=== PATIENT | male | born 1945 | race Caucasian/White ===

== ENCOUNTER → 2021-10-27 | Emergency (ER) | payer MEDICARE, SELFPAY ==
[2021-10-27 19:35] VITALS: BP 177/91; PULSE 87; RESP 16; TEMP 36.4; O2SAT 98; BMI 30.1
[2021-10-27 19:42] VITALS: BP 186/95; PULSE 91; RESP 15; O2SAT 98
--- NOTE | 2021-10-27 19:44 | RAD_ITS ---
INDICATION: chest pain EXAMINATION/TECHNIQUE: X-RAY - XR Chest 1 View COMPARISON: 09/30/2015 chest x-ray. FINDINGS: LINES/DEVICES: None. LUNGS: Mild asymmetric elevation right hemidiaphragm compared to left, unchanged compared with 09/30/2015 chest x-ray. No airspace opacity or abnormal interstitial pattern. No nodule or mass. No pleural effusion or pneumothorax. MEDIASTINUM AND CARDIOVASCULAR STRUCTURES: Altered contour due to mild rightward rotation. There is however normal size and contour of the cardiomediastinal silhouette. No evidence of pulmonary vascular congestion. BONES AND SOFT TISSUES: No fracture or focal osseous lesion. RAD/Chest 1 View (Portable) IMPRESSION: 1. No radiographic evidence of acute cardiopulmonary disease. Electronically Signed: Timothy Vaca DO at 20:37 EDT ,
--- NOTE | 2021-10-27 19:45 | EKG12_ITS ---
Test Reason : CP Blood Pressure : / mmHG Vent. Rate : 084 BPM Atrial Rate : 084 BPM P-R Int : 140 ms QRS Dur : 108 ms QT Int : 378 ms P-R-T Axes : -28 001 060 degrees QTc Int : 446 ms Normal sinus rhythm Inferior-posterior infarct , possibly acute Lateral injury pattern ACUTE SC / STEMI Abnormal ECG Confirmed by JOÃO FITCH, LORY ([id number]), sound editor FOSTER YOUSSEF ([id number]) on 10/30/2021 9:59:26 AM Referred By: DEBRA Confirmed By:LORY MOYER MD
[2021-10-27] MEDS: Aspirin 81 MG TAB.CHEW 324 MG PO (19:50)
[2021-10-27] MEDS: 0.9% Normal Saline 1,000 ML 150 ML IV (19:50)
[2021-10-27] MEDS: TICAGRELOR 90 MG TABLET 180 MG PO (19:50)
[2021-10-27] MEDS: Heparin Injection (Vial) 5,000 UNIT/ML VIAL 4000 UNIT IV (19:50)
[2021-10-27 19:52] VITALS: O2SAT 100
--- NOTE | 2021-10-27 19:52 | ED.VIS.CHEST ---
HPI History of Present Illness Chief Complaint: Chest Pain Informant: patient Onset/Context/Timing Onset: Days Activity at onset: gradual Timing: Waxes and wanes Location: Substernal Current Severity: Moderate Maximum Severity: Moderate Narrative Narrative: Patient present secondary to chest pain. He reports 1 week history of chest pain that is been waxing and waning. He states he was actually pain-free for a few days but then pain recurred again this morning. It has persisted throughout the day so family encouraged him to come in. EKG obtained on arrival reveals acute ST elevation [place] in the inferior leads with reciprocal changes in the anterior precordials. STEMI alert activated. [facility] Medical History Former smoker HLD (hyperlipidemia) HTN (hypertension) Mitral regurgitation STEMI (ST elevation myocardial infarction) Home Medications ckaiupqs-iyb-lyrye acid 0.4 mg-lycopene 300 mcg-lutein 250 mcg tablet (Centrum Silver) 1 ea PO DAILY 04/04/16 [History Last Taken Unknown] omega-3 fatty acids 500 mg capsule (Fish Oil) 500 mg PO DAILY 04/04/16 [History Last Taken Unknown] Allergy/AdvReac Type Severity Reaction Status Date / Time No Known Allergies Allergy Verified 10/27/21 19:37 Family History Mother CVA (cerebral vascular accident) Diabetes Hypertension Family History other Surgical History S/P tonsillectomy and adenoidectomy Social History household members: spouse Smoking Status: Former smoker how long ago did patient quit smoking: Quit ~ 15 years prior, smoked 1-1.5 ppd intermittent since teen until quit. alcohol intake: never substance use type: does not use ROS ROS ED Constitutional Constitutional ED: Denies chills or fever(s) Eyes Eyes: Denies change in vision or discharge from eye(s) ENT ENT ED: Denies discharge from eye(s), rhinorrhea or sore throat Cardiovascular Cardiovascular: Reports chest pain; Denies palpitations Respiratory/Chest Respiratory/Chest: Reports dyspnea; Denies cough Gastrointestinal Gastrointestinal: Denies abdominal pain, diarrhea, nausea or vomiting Genitourinary Genitourinary ED: Denies dysuria Musculoskeletal Musculoskeletal: Denies back pain or extremity pain Integumentary Denies Abrasions or rash Neurologic Neurologic: Denies headache(s) or weakness Allergic/Immunologic Allergic/Immunologic ED: Denies lip swelling or urticaria EXAM Physical Exam Const Vital Signs: 10/27/21 19:35 10/27/21 19:42 10/27/21 19:52 Temperature 97.6 F L Temperature Source Temporal Pulse Rate 87 Pulse Rate [1] Pulse Rate [3] Pulse Rate [4] Respiratory Rate 16 15 Respiratory Rate [1] Respiratory Effort Blood Pressure 177/91 H 186/95 H Blood Pressure [1] Blood Pressure Mean 119 Pulse Ox 98 100 Oxygen Delivery Method Room Air Nasal Cannula Oxygen Flow Rate (L/min) 2 10/27/21 19:52 10/27/21 20:31 Temperature Temperature Source Pulse Rate Pulse Rate [1] 92 Pulse Rate [3] 0 L Pulse Rate [4] 0 L Respiratory Rate 15 Respiratory Rate [1] 16 Respiratory Effort Normal Blood Pressure 186/95 H Blood Pressure [1] 186/95 H Blood Pressure Mean Pulse Ox 100 Oxygen Delivery Method Nasal Cannula Oxygen Flow Rate (L/min) 2 Positive well nourished and well developed General Appearance ED: well developed HEENT Reports normocephalic and head/scalp atraumatic Eyes PERRL and EOMs intact bilaterally Neck supple Chest Wall inspection of chest normal and palpation of chest normal Resp normal respiratory effort and clear to auscultation bilaterally Cardio regular rate and regular rhythm GI normal to inspection, nondistended, normoactive bowel sounds Palpation: soft Back/Spine no CVA tenderness Extremity normal to inspection Neuro oriented x3 and no sensory deficits noted Sensorium / Orientation: alert Motor Exam: strength 5/5 throughout Psych mental status grossly normal Skin no rashes or lesions noted MDM MDM MDM Narrative Medical decision making narrative: Patient is given aspirin, Brilinta, heparin. Lab work obtained. Play Back Operator was in route. Lab Data Labs: Laboratory Results - last 24 hr 10/27/21 10/27/21 10/27/21 19:45 19:45 19:45 WBC 14.2 H RBC 5.43 Hgb 15.2 Hct 46.7 MCV 86.0 MCH 28.0 MCHC 32.5 RDW Std Deviation 40.6 RDW Coeff of Ariana 13.1 Plt Count 196 MPV 9.9 Immature Gran % (Auto) 0.400 Neut % (Auto) 74.3 H Lymph % (Auto) 16.2 L [place] % (Auto) 7.7 Eos % (Auto) 1.0 Baso % (Auto) 0.4 Absolute Neuts (auto) 10.6 H Absolute Lymphs (auto) 2.30 Nucleated RBC % 0 PT 12.3 INR 1.0 APTT 28.3 Sodium 140 Potassium 3.8 Chloride 106 Carbon Dioxide 27.0 Anion Gap 7 BUN 14 Creatinine 1.22 Estim Creat Clear Calc 55.68 Est GFR (MDRD) Af Amer 75 Est GFR (MDRD) Non-Af 62 BUN/Creatinine Ratio 11.5 Glucose 105 Calcium 9.1 Troponin I High Sens 13882 H* Radiography Chest X-Ray - ED: 1 View and Read by ED Physician Diagnostic Testing: Clinical Impression(s) from Imaging Studies Chest X-Ray 10/27/21 19:44 IMPRESSION: 1. No radiographic evidence of acute cardiopulmonary disease. Electronically Signed: Timothy Vaca DO at 20:37 EDT , Borderline wide mediastinum. Rotation is noted in the image. No infiltrate appreciated. EKG Initial EKG: Attestation: I personally reviewed and interpreted this EKG as follows: Interpretation: Sinus Rhythm (Sinus [address] elevation in the inferior leads. Reciprocal ST depression is noted in V1, V2.) Treatment and Re-Evaluation Narrative: While awaiting laboratory director team arrival, nursing staff advised me that the patient's chest pain was worsening. As I was walking back to the room to evaluate the patient nursing staff yelled that they needed a doctor and the patient had become unresponsive. No palpable pulse was noted. CPR was started immediately. Patient was bagged and 7.5 ET tube was placed with glide scope Patient remained in PEA for all but 1 rhythm check. At 1 rhythm check he was V. fib. We had family step aside and patient was shocked. CPR immediately restarted. After 27 minutes of continuous CPR patient has not regained a pulse. Bedside ultrasound reveals no cardiac motion. Time of is called at 8:26 PM. Critical Care Time Critical Care Time: Yes Critical care time (excluding procedures): 30-74 minutes (45 minutes) Discharge Plan Triage Chief Complaint: Chest Pain ED Provider: Daisy Ayala Dx/Rx/DC Orders Clinical Impression: Acute ST elevation myocardial infarction (STEMI) of inferior wall, Cardiac arrest Prescriptions: No Action Centrum Silver 1 EACH tablet 1 ea PO DAILY Fish Oil 500 MG capsule 500 mg PO DAILY Primary Care Provider: Armando Urias Referrals: Armando Urias MD [Primary Care Provider] - Disposition Disposition: Date/Time: 10/27/21 22:59
--- NOTE | 2021-10-27 19:53 | PCM.HP.STD ---
HPI - General General Date of Admission: 10/27/21 Date of Service: 10/27/21 Chief Complaint: Chest pain HPI Narrative The patient is a 75 y/o M w/ PMHx: HLD, HTN noted in the chart although patient denies, review of chart notes previous remote 2016 evaluation with HTN diagnosis and start lisinopril at that time, Former tobacco use who presents to the [facility] ED on 10/27/21 history of mid and upper chest discomfort described as a pressure, rated 5 out of 10 in severity ongoing over the last week with some radiation toward the back as well as left upper extremity and the bilateral neck region noted that it occurred at rest but also with activity although he denied it being specifically worsened with any activity and only intermittently seem to joo with no specific interventions causing this with some shortness of breath associated but no nausea, emesis or diaphoresis prompting eventual ED evaluation. He denies this ever having happened prior. STEMI call initiated per ED following EKG notable for inferior STEMI with discussions and EKG sent to Dr. Bowens. CBC, BMP, Trop, CXR pending upon evaluation. Patient being administered ASA, Brillinta, Heparin load. [facility] Medical History (Updated 10/27/21 @ 19:[address] Karma Shearer MD) Former smoker HLD (hyperlipidemia) HTN (hypertension) Mitral regurgitation STEMI (ST elevation myocardial infarction) Home Medications mnvgtsbp-ttf-awvwd acid 0.4 mg-lycopene 300 mcg-lutein 250 mcg tablet (Centrum Silver) 1 ea PO DAILY 04/04/16 [History Last Taken Unknown] omega-3 fatty acids 500 mg capsule (Fish Oil) 500 mg PO DAILY 04/04/16 [History Last Taken Unknown] Allergy/AdvReac Type Severity Reaction Status Date / Time No Known Allergies Allergy Verified 10/27/21 19:37 Family History (Updated 10/27/21 @ 19:[address] Karma Shearer MD) Mother CVA (cerebral vascular accident) Diabetes Hypertension Family History other other (States he does not know any of his paternal family history.) Surgical History (Updated 10/27/21 @ 19:[address] Karma Shearer MD) S/P tonsillectomy and adenoidectomy Social History (Updated 10/27/21 @ 19:[address] Karma Shearer MD) household members: spouse Smoking Status: Former smoker how long ago did patient quit smoking: Quit ~ 15 years prior, smoked 1-1.5 ppd intermittent since teen until quit. alcohol intake: never substance use type: does not use ROS ROS Narrative Admission Review of Systems: CONSTITUTIONAL: No weight loss, fever, chills, + weakness or fatigue. HEENT: Eyes: No visual loss, blurred vision, double vision or yellow sclerae. Ears, Nose, Throat: No hearing loss, sneezing, congestion, runny nose or sore throat. SKIN: No rash or itching, lesions, wounds. CARDIOVASCULAR: + chest pain, chest pressure, No palpitations, edema, orthopnea, syncopal events. RESPIRATORY: + Shortness of breath, No cough or sputum, wheezing, hemoptysis. GASTROINTESTINAL: No anorexia, nausea, vomiting or diarrhea, abdominal pain, melena, BRBPR. GENITOURINARY: No dysuria, frequency, urgency or retention. NEUROLOGICAL: No headache, dizziness, syncope, paralysis, ataxia, numbness or tingling in the extremities, focal weakness, change in bowel or bladder control, seizure. MUSCULOSKELETAL: No muscle, back pain, joint pain or stiffness. HEMATOLOGIC: No anemia, bleeding or bruising. LYMPHATICS: No enlarged nodes. No history of splenectomy. PSYCHIATRIC: No history of depression or anxiety. ENDOCRINOLOGIC: No reports of sweating, cold or heat intolerance. No polyuria or polydipsia. ALLERGIES: No history of asthma, hives, eczema or rhinitis. Vital Signs Vital Signs Vital Signs: 10/27/21 19:35 10/27/21 19:42 Temperature 97.6 F L Temperature Source Temporal Pulse Rate 87 Respiratory Rate 16 15 Blood Pressure 177/91 H 186/95 H Blood Pressure Mean 119 Pulse Ox 98 Oxygen Delivery Method Room Air Weight Weight: 210 lb Body Mass Index (BMI) 30.1 Physical Exam Narrative Physical Examination: General: Awake, alert, oriented x 3 and cooperative, seated upright in the ED bed, noted pain maximum 5 out of 10, comfortable appearing. Skin: Normal color, normal turgor, no icterus, no cyanosis. HEENT: AT/NC, EOMI, PERRLA, MMM, no carotid bruits or JVD noted. Lungs: Mildly diminished, greater bases, appropriate effort, no rales, ronchi or wheezing. Heart: Currently regular rate and rhythm; no gallop, rub audible. Abdomen: Soft, obese, NTTP, ND, normal BS, no HSM. Extremities: No cyanosis, clubbing, or edema. Neurological: Patient awake, alert, oriented as noted cognitive function intact; pupils equally reactive to light and accommodation, cranial nerves II-XII grossly normal, moving all 4 extremities, no focal deficits, strength mildly globally Rosana secondary to acute complaints and presentation Psychiatric: Affect appears normal, making jokes with staff, no acute evidence of depressive or anxiety feelings. Results Lab / Micro Data Result Diagrams: 10/27/21 19:45 10/27/21 19:45 Assessment & Plan Assessment/Plan (1) STEMI (ST elevation myocardial infarction): PLAN: Plan The patient is a 75 y/o M w/ PMHx: HLD, HTN noted in the chart although patient denies, review of chart notes previous remote 2016 evaluation with HTN diagnosis and start lisinopril at that time, Former tobacco use who presents to the [facility] ED on 10/27/21 history of mid and upper chest discomfort described as a pressure, rated 5 out of 10 in severity ongoing over the last week. #1. Chest Pain w/ Acute STEMI: EKG in ED w/ inferior STEMI. ED initiated ASA, brillinta and heparin load. CBC, BMP, Trop, CXR pending upon evaluation. Will admit patient to the ICU following intervention given STEMI presentation, maintain on a monitored bed, continue serial cardiac enzymes and EKGs. Obtain magnesium level upon admission. Continue medical management w/ initiation asa, Brilinta, BB/KAREN inhibitor/ARB per cardiology discretion, high-dose statin statin w/ AM FLP. ECHO will be requested. ASA, NG, morphine. #2. Hypertension, Uncontrolled, Non-compliant: Prior records indicate prior HTN diagnosis and Rx lisinopril but from discussions with patient he denies history and denies taking any medications, as noted will initiate BB/ACEI/ARB per cardiology discretion, PRN IV hydralazine. #3. Hyperlipidemia: Will add high dose statin, FLP in AM. #4. Former tobacco use: Encourage continued tobacco cessation. #5. Obesity: Weight loss and lifestyle changes encouraged. #6. DVT Prophylaxis: SCDs, heparin load as noted, plan transition to chemoprophylactic lovenox in AM. Charges/Coding Visit Charges Inpatient E&M: 35607 Init Hosp L3
[2021-10-27 20:02] LABS: Absolute Neutrophil Count 10.6 X10^3/uL (2.0-7.7); Basophil# 0.06 X10^3/uL; Basophil% 0.4 % (0-1); Eosinophil# 0.14 X10^3/uL; Hematocrit 46.7 % (40-54); Hemoglobin 15.2 g/dL (13.0-16.5); Lymphocyte % 16.2 % (19-41); Mean Corp Hgb Conc 32.5 g/dL (32-36); Mean Platelet Vol. 9.9 fl (6.2-12.0); Monocyte% 7.7 % (0-10); NRBC Flagged by Analyzer 0 % (0-5); Neutrophil # 10.56 X10^3/uL (2.7-7.7); Neutrophil % 74.3 % (47-70); Platelet Count 196 K/mm3 (150-450); RBC Distribution Width CV 13.1 % (11.6-14.6); RBC Distribution Width SD 40.6 fl (35.1-43.9); Red Blood Count 5.43 M/mm3 (4.6-6.2); White Blood Count 14.2 K/mm3 (4.4-11.0)
[2021-10-27 20:31] VITALS: BP 186/95; PULSE 0; PULSE 92; RESP 15; RESP 16; O2SAT 100; O2SAT 99
[2021-10-27 20:43] LABS: Prothrombin Time (Protime)PT. 12.3 SECONDS (11.7-14.9)
[2021-10-27 20:44] LABS: Partial Thromboplast Time 28.3 Seconds (24.1-36.2)
--- NOTE | 2021-10-27 20:55 | CM.ED ---
Social Work Note Reason for Referral: STEMI Alert SW responded to STEMI Alert. Pt's Paola present at [facility]. SW provided emotional support to Paola. SW was in room when pt became unresponsive and SW stayed with Paola during this time. Paola asked this worker to call pt's sister Cata and provide update and to come to [facility]. ILDA placed a call to pt's sister Cata, per Paola's request, and asked for Cata to come to [facility]. Cata states she will be in to [facility]. Paola also requested that this worker call her daughter Rosita and also daughter Donald. With Paola's permission, this worker called daughters Rosita and Donald. Rosita states she will be in to [facility]. Donald called Paola back, SW answered, Donald states she called her brother and he will be in to [facility]. SW updated Paola that Donald called back and stated she called her brother who will be in to [facility]. Paola states her son is able to come to [facility]. Pt's sister Cata Arrived to [facility], emotional support provided. Paola's son arrived to [facility], emotional support provided. Paola's son arrived at [facility], emotional support provided. Ines Soria FREIGHT DISPATCHER, CNC MILL OPERATOR
--- NOTE | 2021-10-27 21:22 | CM.ED ---
Social Work Note SW updated that pt's family is out at desk requesting to speak to SW. Pt's daughter Rosita present at desk. Rosita asked for next steps. ILDA explained that Paola and Cata picked [facility] and [facility] will call home. ILDA offered support to Rosita. Ines Soria ORCHESTRA MUSICIAN, CEO AND FOUNDER
[2021-10-27 21:47] LABS: Anion Gap 7 (5-15); BUN 14 mg/dL (7-18); BUN/Creat Ratio 11.5 RATIO (10-20); Calcium,Total 9.1 mg/dL (8.5-10.1); Chloride 106 mmol/L (98-107); Creatinine, Serum 1.22 mg/dL (0.70-1.30); EST Glomerular Filtration Rate 62 mL/min (>60); Est Glom Filt Rate - Afr Amer 75 mL/min (>60); Estimated Creatinine Clearance 55.68 ml/min; Glucose 105 mg/dL (74-106); Potassium 3.8 mmol/L (3.5-5.1); Sodium Level 140 mmol/L (136-145); Troponin-I HS 51669 pg/mL (3.0-78.0)
--- NOTE | 2021-10-27 22:18 | ED.RN ---
Gold colored ring removed from patient and given to . gregg murillo rn [id number]
== END ==
PROVIDERS: Emergency Provider Emergency Medicine; PCP Family Medicine; Visit Provider Emergency Medicine
DX: I21.19 ST elevation (STEMI) myocardial infarction involving other coronary artery of inferior wall (principal); I46.2 Cardiac arrest due to underlying cardiac condition; I10 Essential (primary) hypertension; E66.9 Obesity, unspecified; Z91.14 Patient's other noncompliance with medication regimen; Z79.899 Other long term (current) drug therapy; Z87.891 Personal history of nicotine dependence
CPT/HCPCS: 31500; 71045; 80048; 84484; 85025; 85610; 85730; 92950; 93005; 96361; 96374; 99282; J7030; A4216